=== PATIENT | male | born 1980 | race Caucasian/White ===

== ENCOUNTER 2016-10-10 13:09 | Emergency (ER) | payer OTHER ==
[2016-10-10 13:23] VITALS: BP 150/91
--- NOTE | 2016-10-10 22:18 | ED Physician Documentation ---
Ear Complaints - HISTORIAN Historian: patient - HPI Stated Complaint: right ear swelling Chief Complaint: Ear Complaints Additional Information: right ear pain, tied to clean ear wax out of ear with flushing system Timing: still present Location of Pain: R ear Severity: moderate Associated Symptoms: sharp pain, hearing loss, roaring Further Comments: no - ROS CONST: no problems CVS/RESP: none GI/: denies: black stools, nausea, vomiting MS/SKIN/LYMPH: none NEURO/PSYCH: denies: weakness, numbness, anxiety, depression All Systems -: Yes - PAST HX Past History: none Immunizations: referred to PCP Allergies/Adverse Reactions: Allergies Allergy/AdvReac Type Severity Reaction Status Date / Time No Known Allergies Allergy Verified 10/10/16 13:18 Home Medications: Ambulatory Orders Medication Instructions Recorded NK [NK] 10/10/16 - SOCIAL HX Smoking History: non-smoker Alcohol Use: none Drug Use: none - FAMILY HX Family History: No - VITAL SIGNS Vital Signs: Vital Signs Temp Pulse Resp BP Pulse Ox 100.9 F H 99 H 24 150/91 94 10/10/16 13:56 10/10/16 13:56 10/10/16 13:56 10/10/16 13:56 10/10/16 13:56 - REVIEWED ASSESSMENTS Nursing Assessment Reviewed: Yes Vitals Reviewed: Yes Progress - Results/Orders Results/Orders: no testing ordered - Progress Progress: pt. stable entire time in er Critical Care Note - Critical Care Note Total Time (mins): 0 ED Results Lab/Radiology - Lab Results Lab Results: none ordered - Radiology Radiology Impressions: none ordered Ear Complaint Physical Exam - EXAM General Appearance: alert, moderate distress Ear: auricle nml, pain w movement of auricl, right, erythema, swelling of canal , material in canal Mouth/Throat: lips nml, gums nml, pharynx nml Nose: nml inspection, mucosal swelling Head/Neck: atraumatic, neck nml inspection, cervical lymphadenopathy. No: facial swelling, facial erythema Eye: eyes nml inspection, PERRL Resp/CVS: chest non-tender, breath sounds nml, heart sounds nml, no resp. distress, lungs clear, reg. rate & rhythm Abdomen: non-tender, no organomegaly Skin: nml color, no skin rash Neuro/Psych: oriented x3, mood/affect nml Discharge Clincal Impression: Right otitis externa Qualifiers: Otitis externa type: swimmer's ear Chronicity: acute Qualified Code(s): H60.331 - Swimmer's ear, right ear Referrals: Primary Doctor,No [Primary Care Provider] - 2 Days Home Medications: Ambulatory Orders NK [NK] 10/10/16 Condition: Stable Disposition: 01 HOME, SELF-CARE Decision to Admit: NO Decision Time: 13:45
== END 2016-10-10 13:56 | disposition home or self-care (01) ==
LOC: ED 13:09
DX: H60.331 Swimmer's ear, right ear (principal)
CPT/HCPCS: 99283